=== PATIENT | female | born 1995 | race Caucasian/White ===

== ENCOUNTER 2019-10-26 07:31 | Day surgery (SDC) | payer OTHER, SELFPAY ==
[~2019-10-26] VITALS: Ht 157.5 cm; Wt 58.1 kg
[2019-10-26] MEDS ORDERED: BUPIVACAINE-MPF 0.25% 30 ML VIAL INJ ONE (09:13)
[2019-10-26] MEDS ORDERED: LIDOCAINE 1% 500 MG/50 ML VIAL ONE (09:13)
[2019-10-26] MEDS ORDERED: LACTATED RINGERS 1,000 ML IV SCH (09:26)
[2019-10-26] MEDS ORDERED: diphenhydrAMINE 50 MG/ML VIAL IVP PRN (09:30)
[2019-10-26] MEDS ORDERED: ONDANSETRON 4 MG/2 ML VIAL IVP PRN (09:30)
[2019-10-26] MEDS ORDERED: HYDROmorphone 1 MG/ML AMP IVP PRN ×2 (09:30→11:15)
[2019-10-26] MEDS ORDERED: MEPERIDINE 25 MG/ML SYR IVP PRN (09:30)
[2019-10-26] MEDS ORDERED: DEXT 5% /NACL 0.9% 1,000 ML IV SCH (11:11)
[2019-10-26] MEDS ORDERED: HYDROcodone/APAP 5/325 MG 1 TAB TAB PO PRN (11:15)
[2019-10-26] MEDS ORDERED: MORPHINE SULFATE 2 MG/ML SYR IVP PRN (11:15)
[2019-10-26] MEDS ORDERED: MORPHINE SULFATE 4 MG/ML SYR IV PRN (11:15)
[2019-10-26] MEDS ORDERED: ACETAMINOPHEN 325 MG TAB PO PRN (11:15)
[2019-10-26] MEDS ORDERED: ONDANSETRON 4 MG/2 ML VIAL IV PRN (11:15)
[2019-10-26] MEDS: HYDROmorphone PFS 2 MG/ML SYR ONE ×2 (11:32→11:42)
[2019-10-26] MEDS ORDERED: HYDROmorphone PFS 2 MG/ML SYR ONE (13:00)
[2019-10-27] MEDS ORDERED: SUCCINYLCHOLINE CHLORIDE 200 MG/10 ML VIAL IVP ONE (09:15)
[2019-10-27] MEDS ORDERED: ONDANSETRON 4 MG/2 ML VIAL ONE (09:15)
[2019-10-27] MEDS ORDERED: SEVOFLURANE 250 ML BTL INH ONE (09:15)
[2019-10-27] MEDS ORDERED: fentaNYL citrate 0.05 MG/ML VIAL ONE (09:15)
[2019-10-27] MEDS ORDERED: MIDAZOLAM 2 MG/2 ML VIAL ONE (09:15)
[2019-10-27] MEDS ORDERED: ROCURONIUM 50 MG/5 ML VIAL IV ONE (09:15)
[2019-10-27] MEDS ORDERED: KETOROLAC 30 MG/ML VIAL ONE (09:15)
[2019-10-27] MEDS ORDERED: DEXAMETHASONE 4 MG/ML VIAL ONE (09:15)
[2019-10-27] MEDS ORDERED: SUGAMMADEX SODIUM 200 MG/2 ML VIAL IV ONE (09:15)
[2019-10-27] MEDS ORDERED: MEPERIDINE 25 MG/ML SYR ONE (09:15)
[2019-10-27] MEDS ORDERED: PROPOFOL 200 MG/20 ML VIAL IV ONE (09:15)
== END 2019-10-26 15:00 | disposition home or self-care (01) ==
LOC: MDS 07:31 → MFCC 07:31 → MDS 15:00
PROVIDERS: ATTEND Surgery
DX: K80.10 Calculus of gallbladder with chronic cholecystitis without obstruction (principal); Z11.59 Encounter for screening for other viral diseases; Z79.899 Other long term (current) drug therapy; Z90.49 Acquired absence of other specified parts of digestive tract
CPT/HCPCS: 36415; 47563; 71045; 74300; 81025; 86886; 86900; 86901; C1887; J0690; J1170; J2001; J3490; J7030; J7060; J7120; Q0092; U0003; 88304; J0330; J1100; J1885; J2175; J2250; J2405; J2704; J3010